=== PATIENT | male | born 1965 | race Two or more races ===

== ENCOUNTER 2017-01-24 17:16 | Emergency (ER) | payer SELFPAY ==
[~2017-01-24] VITALS: Ht 165.1 cm; Wt 72.6 kg
[2017-01-24 17:27] VITALS: BP 145/97
--- NOTE | 2017-01-24 17:28 | PHYS DOC ---
Adult General Chief Complaint Chief Complaint: INSECT BITE HPI HPI Patient is a 51 year old male with no significant medical history who presents with an insect bite possibly a spider on the left lateral lower flank that he noted yesterday at 4 AM. Patient states it started as a small area of redness and now has grown bigger. Patient denies any fever. He states he found a spider on the area he was lying. Review of Systems Review of Systems Constitutional:see HPI. Eyes: Denies change in visual acuity, redness, or eye pain [] HENT: Denies nasal congestion or sore throat [] Respiratory: Denies cough or shortness of breath [] Cardiovascular: No additional information not addressed in HPI [] GI: Denies abdominal pain, nausea, vomiting, bloody stools or diarrhea [] : Denies dysuria or hematuria [] Musculoskeletal: Denies back pain or joint pain [] Integument: Left lateral lower flank spider bite Neurologic: Denies headache, focal weakness or sensory changes [] Endocrine: Denies polyuria or polydipsia [] Current Medications Current Medications Current Medications Medications (Trade) Dose Ordered Sig/Lindsey Start Time Stop Time Status Last Admin Dose Admin Diphtheria/ Tetanus/Acell Pertussis (Boostrix) 0.5 ml ONCE ONCE 01/24/17 17:30 01/24/17 17:31 Famotidine (Pepcid) 20 mg 1X ONCE 01/24/17 17:30 01/24/17 17:31 Prednisone (Prednisone) 60 mg 1X ONCE 01/24/17 17:30 01/24/17 17:31 Allergies Allergies Allergies Coded Allergies Type Severity Reaction Last Updated Verified No Known Drug Allergies 01/24/17 No Physical Exam Physical Exam Constitutional: Well developed, well nourished, no acute distress, non-toxic appearance. [] HENT: Normocephalic, atraumatic, bilateral external ears normal, oropharynx moist, no oral exudates, nose normal. [] Eyes: PERRLA, EOMI, conjunctiva normal, no discharge. [] Neck: Normal range of motion, no tenderness, supple, no stridor. [] Cardiovascular:Heart rate regular rhythm, no murmur [] Lungs & Thorax: Bilateral breath sounds clear to auscultation [] Abdomen: Bowel sounds normal, soft, no tenderness, no masses, no pulsatile masses. [] Skin: Patient has a large area of cellulitis on the left lateral lower flank region approximately 10 x 8 cm. The area is warm and very erythematous. Back: No tenderness, no CVA tenderness. [] Extremities: No tenderness, no cyanosis, no clubbing, ROM intact, no edema. [] Neurologic: Alert and oriented X 3, normal motor function, normal sensory function, no focal deficits noted. [] Psychologic: Affect normal, judgement normal, mood normal. [] EKG EKG [] Radiology/Procedures Radiology/Procedures [] Course & Med Decision Making Course & Med Decision Making Pertinent Labs and Imaging studies reviewed. (See chart for details) Patient has a possible spider bite with cellulitis on the left lower lateral flank region. He was given tetanus in the ED. He was discharged with prednisone , Bactrim, Pepcid and Benadryl. Instructed to keep the area clean and dry. Follow-up with his own primary care doctor in one week. Instructed to return to the ED if symptoms worsen. Dragon Disclaimer Dragon Disclaimer This electronic medical record was generated, in whole or in part, using a voice recognition dictation system. Departure Departure Impression: Primary Impression: Insect bite Additional Impression: Cellulitis of lower back Disposition: 01 HOME, SELF-CARE Condition: STABLE Patient Instructions: Cellulitis, Insect Bite Additional Instructions: You were seen for insect bite that appears infected. We put you on antibiotics. Complete them. Take the rest of the medicines as prescribed. Come back to the ED at any point symptoms worsen or if you develop a fever. Scripts Sulfamethoxazole/Trimethoprim (BACTRIM DS TABLET) 1 Each Tablet 1 TAB PO BID, #20 TAB Prov: NEGIN CASTRO APRN 01/24/17 Famotidine (PEPCID) 20 Mg Tablet 20 MG PO DAILY, #7 TAB Prov: MUTUNGANEGIN TIE BINDER 17 Diphenhydramine Hcl (BENADRYL) 25 Mg Capsule 1 CAP PO Q4HRS W/A Y for RASH, #30 CAP 1 Refill Prov: MUTUNGANEGIN TIE BINDER 01/24/17 Prednisone (PREDNISONE) 50 Mg Tablet 1 TAB PO DAILY, #4 TAB Prov: MUTUNGANEGIN TIE BINDER 17 Problem Qualifiers Primary Impression: Insect bite Encounter type: initial encounter Qualified Codes: W57.XXXA - Bitten or stung by nonvenomous insect and other nonvenomous arthropods, initial encounter NEGIN CASTRO APRN Jan 24, 2017 17:28
[2017-01-24] MEDS ORDERED: FAMOTIDINE 20 MG TABLET. PO ONE (17:30)
[2017-01-24] MEDS ORDERED: DIPHTH,PERTUSS(ACELL),TET TOX 0.5 ML DISP.SYRIN. VAX IM ONE (17:30)
[2017-01-24] MEDS ORDERED: predniSONE 20 MG TABLET PO ONE (17:30)
[2017-01-24] MEDS ORDERED: PRED50TA PO (17:35)
[2017-01-24] MEDS ORDERED: FAMO-63 PO (17:35)
[2017-01-24] MEDS ORDERED: SULF1TAB24 PO (17:35)
[2017-01-24] MEDS ORDERED: DIPH25CA58 PO (17:35)
== END 2017-01-24 17:50 | disposition home or self-care (01) ==
LOC: ER 17:16
DX: S30.860A Insect bite (nonvenomous) of lower back and pelvis, initial encounter (principal); L03.312 Cellulitis of back [any part except buttock and flank]; W57.XXXA Bitten or stung by nonvenomous insect and other nonvenomous arthropods, initial encounter; Y93.89 Activity, other specified; Y99.8 Other external cause status; Y92.89 Other specified places as the place of occurrence of the external cause
CPT/HCPCS: 90471; 90715; 99283; J7512